=== PATIENT | male | born 1965 | race Caucasian/White ===

== ENCOUNTER 2020-12-29 01:19 | Emergency (ER) | payer SELFPAY ==
[~2020-12-29] VITALS: Ht 170.5 cm; Wt 74.8 kg
[2020-12-29 01:33] VITALS: BP 116/62
--- NOTE | 2020-12-29 01:38 | ED General ---
General Chief Complaint: General Problems/Pain Stated Complaint: PAIN CONTROL Source of Information: Patient History of Present Illness Date Seen by Provider: Dec 29, 2020 Time Seen by Provider: 01:20 Initial Comments Patient is a 55-year-old male who presents with postsurgical pain after being discharged from earlier this evening after being treated for a left tibial fracture. Patient drove back to [place] and did not have time to fill his prescriptions prior to pharmacy closed. No new symptoms or complaints. Timing/Duration: 12 Hours Severity: Moderate Modifying Factors: improves with Other Associated Systoms: Other Allergies and Home Medications Allergies Coded Allergies: No Known Drug Allergies (Unverified , 11/05/10) Patient Home Medication List Home Medication List Reviewed: Yes Review of Systems Review of Systems Constitutional: see HPI EENTM: see HPI Respiratory: see HPI Cardiovascular: see HPI Gastrointestinal: see HPI Genitourinary: see HPI Musculoskeletal: see HPI Skin: see HPI Psychiatric/Neurological: See HPI Hematologic/Lymphatic: See HPI Immunological/Allergic: see HPI All Other Systems Reviewed Negative Unless Noted: Yes Past [id number] Hx Past Med/Social Hx: Reviewed Nursing Past Med/Soc Hx Physical Exam Vital Signs Capillary Refill : Height, Weight, BMI Height: '" Weight: lbs. oz. kg; BMI Method:Stated General Appearance: Mild Distress Extremity: Other (Left leg surgical wounds. Sutures clean dry and intact.) Focused Exam Sepsis Stage: Ruled Out Progress/Results/Core Measures Suspected Sepsis SIRS Temperature: Pulse: Respiratory Rate: Blood Pressure / Mean: Results/Orders My Orders Orders - KAERY BENNETT DO Oxycodone/Apap 5/325mg Tablet (Percocet (12/29/20 01:45) Vital Signs/I&O Capillary Refill : Departure Communication (Admissions) Postoperative pain. Pain medications given. Patient has prescription for pain medication discharge paperwork. Impression Primary Impression: Postoperative pain Disposition: HOME, SELF-CARE Condition: Stable Departure-Patient Inst. Referrals: NO,LOCAL PHYSICIAN (PCP/Family) Primary Care Physician Patient Instructions: Postoperative Pain (DC) Add. Discharge Instructions: Please follow-up pain management instructions provided to you by [facility]. All discharge instructions reviewed with patient and/or family. Voiced understanding. Scripts No Active Prescriptions or Reported Meds KAREY BENNETT DO Dec 29, 2020 01:38
[2020-12-29] MEDS ORDERED: oxyCODONE/APAP 5/325MG (PERCOCET 5) TABLET PO ONE (01:45)
== END 2020-12-29 01:47 | disposition home or self-care (01) ==
LOC: EDUNIT# 01:19 → ER FS 01:27
DX: G89.18 Other acute postprocedural pain (principal)
CPT/HCPCS: 99283